=== PATIENT | female | born 1950 | race Hispanic/Latino ===

== ENCOUNTER 2020-07-26 09:32 | Outpatient (CLI) | payer OTHER ==
--- NOTE | 2020-07-26 09:50 | RAD ---
RIGHT HIP 2 VIEWS: HISTORY: Hip pain. FINDINGS: Femoral head contour is normal. No fracture. No osseous lesion seen. IMPRESSION: No acute finding. POS: [id number]
== END 2020-07-26 09:33 | disposition home or self-care (01) ==
LOC: BICRAD 09:32
PROVIDERS: ATTEND Family Medicine
DX: M25.551 Pain in right hip (principal)